=== PATIENT | female | born 1970 | race Hispanic/Latino ===

== ENCOUNTER 2017-08-15 23:00 | Emergency (ER) | payer OTHER ==
[2017-08-15 23:08] VITALS: BP 131/88; PULSE 75; RESP 16; TEMP 99.1; O2SAT 100
--- NOTE | 2017-08-15 23:46 | ED PDOC ---
HPI: Back Time Seen by Provider: 08/15/17 23:15 Chief Complaint (Nursing): Abdominal Pain Chief Complaint (Provider): Abdominal, back and chest pain History Per: Patient History/Exam Limitations: no limitations Onset/Duration Of Symptoms: Days (x 1) Current Symptoms Are (Timing): Still Present Quality Of Discomfort: "Pain" Additional Complaint(s): 46 year old female with no significant medical history presents to the ED complaining of left sided back pain that radiates to the left side of her chest and began today. It is associated with multiple episodes of vomiting and epigastric pain. Patient is visiting from [place]. She reports having similar symptoms last year and had a full workup done, which came back negative. Denies fever, diarrhea, and genitourinary symptoms. PMD: none provided Past Medical History Reviewed: Historical Data, Nursing Documentation, Vital Signs Vital Signs: Last Vital Signs Temp 99.1 F 08/15/17 23:06 Pulse 75 08/15/17 23:06 Resp 16 08/15/17 23:06 BP 131/88 08/15/17 23:06 Pulse Ox 100 08/15/17 23:06 - Medical History PMH: No Chronic Diseases - Surgical History Other surgeries: right knee, left foot - Family History Family History: States: Unknown Family Hx - Social History Current smoker - smoking cessation education provided: Yes (Heavy Smoker >10 cigarettes a day) Alcohol: Social Drugs: Cannabis - Allergies Allergies/Adverse Reactions: Allergies Allergy/AdvReac Type Severity Reaction Status Date / Time baclofen Allergy SHORTNESS Verified 08/15/17 23:06 OF BREATH cyclobenzaprine Allergy SHORTNESS Verified 08/15/17 23:06 [From Flexeril] OF BREATH meperidine [From Demerol] Allergy VOMITING Verified 08/15/17 23:06 Review of Systems ROS Statement: Except As Marked, All Systems Reviewed And Found Negative Cardiovascular: Positive for: Chest Pain Gastrointestinal: Positive for: Vomiting, Abdominal Pain (epigastric) Musculoskeletal: Positive for: Back Pain Physical Exam - Reviewed Nursing Documentation Reviewed: Yes Vital Signs Reviewed: Yes - Physical Exam Appears: Positive for: In Acute Distress (mild painful) Head Exam: Positive for: ATRAUMATIC, NORMOCEPHALIC Skin: Positive for: Normal Color, Warm, Dry Eye Exam: Positive for: EOMI, Normal appearance, PERRL Neck: Positive for: Normal, Painless ROM, Supple Cardiovascular/Chest: Positive for: Regular Rate, Rhythm. Negative for: Murmur Respiratory: Positive for: Normal Breath Sounds. Negative for: Respiratory Distress Gastrointestinal/Abdominal: Positive for: Tenderness (epigastric). Negative for : Guarding Back: Positive for: Other (tenderness to left upper back) Extremity: Positive for: Normal ROM. Negative for: Deformity Neurologic/Psych: Positive for: Alert, Oriented. Negative for: Motor/Sensory Deficits - Laboratory Results Result Diagrams: 08/15/17 23:50 08/15/17 23:50 - ECG O2 Sat by Pulse Oximetry: 100 (RA) Pulse Ox Interpretation: Normal Medical Decision Making Medical Decision Making: Time; 23:15 Impression: back pain, abdominal pain, chest pain Initial Plan: --CT Chest, abdomen, pelvis --EKG --CMP --Urine drug --Lipase --Troponin I --Urine dip --CBC with differentials --PTT --Prothrombin time --Chest x-ray --Urinalysis ---- Scribe Attestation: Documented by Susana Pierre, acting as a scribe for Day Penny MD Provider Scribe Attestation: All medical record entries made by the Scribe were at my direction and personally dictated by me. I have reviewed the chart and agree that the record accurately reflects my personal performance of the history, physical exam, medical decision making, and the department course for this patient. I have also personally directed, reviewed, and agree with the discharge instructions and disposition. Disposition - Clinical Impression Clinical Impression: Abdominal pain - Disposition Disposition: Transfer of Care Disposition Time: 00:00 Condition: STABLE Forms: [employer] ([place]) Patient Signed Over To: Ruy Hayes
[2017-08-15 23:53] LABS: BASO % 0.3 % (0.0-2.0); HEMOGLOBIN 13.2 g/dL (12.0-16.0); LYMPH # 1.1 K/uL (1.0-4.3); LYMPH % 14.4 % (20.0-40.0); MEAN CORPUSCULAR HEMOGLOBIN 32.7 pg (27.0-31.0); MEAN CORPUSCULAR HGB CONC 33.4 g/dL (33.0-37.0); MEAN PLATELET VOLUME 8.2 fl (7.2-11.7); MONO # 0.4 K/uL (0.0-0.8); MONO % 5.3 % (0.0-10.0); NEUT # 5.9 K/uL (1.8-7.0); RBC 4.05 Mil/uL (3.80-5.20); RED CELL DISTRIBUTION WIDTH 14.2 % (11.5-14.5); WHITE BLOOD COUNT 7.4 K/uL (4.8-10.8)
[2017-08-16 00:02] LABS: ALB/GLOB RATIO 1.2 (1.0-2.1); ALBUMIN 4.1 g/dL (3.5-5.0); ALT/SGPT 44 U/L (9-52); AST/SGOT 33 U/L (14-36); BLOOD UREA NITROGEN 9 mg/dl (7-17); CALCIUM 10.1 mg/dL (8.4-10.2); GFR AFRICAN-AMERICAN > 60; GFR NON-AFRICAN AMERICAN > 60; LIPASE 29 U/L (23-300)
[2017-08-16 00:08] LABS: INR 1.1 (0.9-1.2); PROTHROMBIN TIME 12.2 Seconds (9.8-13.1)
[2017-08-16] MEDS ORDERED: Iohexol 300 100 ML IJ ONE (00:29)
--- NOTE | 2017-08-16 01:02 | ED PDOC ---
- Laboratory Results Result Diagrams: 08/15/17 23:50 08/15/17 23:50 - ECG O2 Sat by Pulse Oximetry: 100 (RA) Pulse Ox Interpretation: Normal Medical Decision Making Medical Decision Making: Time: : --Bentyl 20 mg IVPB --Reglan 10 mg IVPB Time: :15 --Patient demanding narcotics and told she would not receive any without sufficient evidence of pathology or imaging studies. She is insistent on being administered Morphine which she was again told she would not be given. --Patient also subsequently asked for Methadone and then retracted her question and asked for Morphine. --She also provider that she is a recovering alcoholic. --Patient was offered Flexeril for back pain and informed provider that she will only take Soma. Time: : --Patient was informed again she will not be receiving narcotics and that provider is still awaiting results of imaging study. She became disgruntled and began to complain about the level of care she is getting. Patient requested to sign out AMA and her request was duly honored. ---- Scribe Attestation: Documented by Susana Pierre, acting as a scribe for Ruy Hayes MD Provider Scribe Attestation: All medical record entries made by the Scribe were at my direction and personally dictated by me. I have reviewed the chart and agree that the record accurately reflects my personal performance of the history, physical exam, medical decision making, and the department course for this patient. I have also personally directed, reviewed, and agree with the discharge instructions and disposition. Disposition - Clinical Impression Clinical Impression: Abdominal pain - POA Present On Arrival: None - Disposition Disposition: AGAINST MEDICAL ADVICE Disposition Time: 02:10 Condition: STABLE Forms: [facility] ([place]) Against Medical Advice - AMA Patient Left Against Medical Advice: The patient declines admission to the hospital and wishes to leave the Emergency Department. This action is against my medical advice. This decision was made with informed refusal. The patient was told that admission to the hospital is necessary. Explanation of the reasons why were discussed. The risks of leaving were explained to the patient and include, but are not limited to, worsening of known or currently unknown conditions, permanent disability and from undiagnosed or untreated conditions. The patient has the capacity to make this informed decision and understands my explanation of the current medical problem and risks of leaving. The patient voluntarily accepts these risks and signed an AMA form documenting our conversation. The patient was given the opportunity to ask questions and reconsider. The patient was encouraged to return to the Emergency Department at any time for further care.
--- NOTE | 2017-08-16 02:11 | CT ---
EXAM: CT Chest With Intravenous Contrast CT Abdomen and Pelvis With Intravenous Contrast CLINICAL HISTORY: 46 years old, female; Pain; Abdominal pain; Localized; Upper; Other: Abd pain; Additional info: L back pain/upper abd pain TECHNIQUE: Axial computed tomography images of the chest, abdomen and pelvis with intravenous contrast. All CT scans at this facility use one or more dose reduction techniques, viz.: automated exposure control; ma/kV adjustment per patient size (including targeted exams where dose is matched to indication; i.e. head); or iterative reconstruction technique. 1632 images are submitted. Multiple sets of axial, sagittal and coronal reformatted images are submitted in soft tissue and bone windows. CONTRAST: 95 mL of omnipaque 300 administered intravenously. COMPARISON: No relevant prior studies available. FINDINGS: CHEST: Lungs: Nonspecific biapical pleural-parenchymal changes. Pleural space: Unremarkable. No significant effusion. No pneumothorax. Heart: Small amount of fluid in the superior pericardial recess. ABDOMEN: Liver: Small focus of decreased density adjacent to falciform of the liver which may represent a focus of focal fatty infiltration. Fatty liver. Hepatic calcification.There is a 1.4 cm focal liver hypodensity that cannot be further characterized on the current examination near the dome of the liver seen on image 86 series 2. Statistically this can represent cyst versus hemangioma. Gallbladder and bile ducts: Unremarkable. No ductal dilation. Pancreas: Unremarkable. No ductal dilation. No mass. Spleen: Unremarkable. No splenomegaly. Adrenals: Right adrenal nodule measuring 1.8 cm with a mean Hounsfield unit of 22. Statistically this can represent adrenal adenoma however it is not confirmed on this examination. There is nodular thickening of left adrenal gland. Kidneys and ureters: Unremarkable. No hydronephrosis. No solid mass. Stomach and bowel: There are nonspecific fluid filled stomach, small bowel loops. These findings can represent ileus versus gastroenteritis/enteritis versus slow transit versus peristalsis. Moderate amount of stool in the colon. Nonspecific colonic wall thickening. Correlation with patient's clinical history of constipation versus stool related colitis versus under distention is recommended. Appendix: Appendectomy. PELVIS: Bladder: There is nonspecific bladder wall thickening. This may be related to incomplete distention. Reproductive: Retroverted uterus. CHEST, ABDOMEN and PELVIS: Intraperitoneal space: Unremarkable. No significant fluid collection. No free air. Bones/joints: Minimal L4-L5 and L3-L4 degenerative disc disease/herniation. No acute fracture. No dislocation. Soft tissues: There is a fat-containing umbilical hernia. Vasculature: Pelvic phleboliths. No aortic aneurysm. Lymph nodes: Subcentimeter paratracheal and prevascular lymph nodes. IMPRESSION: 1. No acute findings. 2.There is a 1.4 cm focal liver hypodensity that cannot be further characterized on the current examination near the dome of the liver seen on image 86 series 2. Statistically this can represent cyst versus hemangioma. Correlation with internal medicine evaluation and further workup or followup as recommended by patient's clinical data.
--- NOTE | 2017-08-16 08:58 | CARD ---
APPROVED REPORT EKG Measurement Heart [id number] <Conclusion> Sinus rhythm with sinus arrhythmia with short TX Otherwise normal ECG
--- NOTE | 2017-08-16 10:12 | RAD ---
HISTORY: Back pain COMPARISON: No prior. FINDINGS: LUNGS: No active pulmonary disease. PLEURA: No significant pleural effusion identified, no pneumothorax apparent. CARDIOVASCULAR: Normal. OSSEOUS STRUCTURES: No significant abnormalities. VISUALIZED UPPER ABDOMEN: Normal. OTHER FINDINGS: None. IMPRESSION: No active disease.
== END 2017-08-16 02:10 | disposition left against medical advice (07) ==
LOC: H.ER 23:00
DX: R10.9 Unspecified abdominal pain (principal); R07.89 Other chest pain; M54.9 Dorsalgia, unspecified
CPT/HCPCS: 71045; 71260; 74177; 80053; 81025; 83690; 84484; 85025; 85610; 85730; 93005; 96365; 99285; J2270; J2765; Q9967